=== PATIENT | female | born 1950 | race Caucasian/White ===

== ENCOUNTER 2020-03-04 00:09 | Emergency (ER) | payer OTHER ==
[~2020-03-04] VITALS: Ht 172.7 cm; Wt 53.1 kg
[2020-03-04 03:14] VITALS: BP 164/62
== END 2020-03-04 03:14 | disposition home or self-care (01) ==
LOC: M.ERS 00:09
DX: S01.312A Laceration without foreign body of left ear, initial encounter (principal); I10 Essential (primary) hypertension; Z88.8 Allergy status to other drugs, medicaments and biological substances; Z88.1 Allergy status to other antibiotic agents; W10.9XXA Fall (on) (from) unspecified stairs and steps, initial encounter; Y93.89 Activity, other specified; Y92.89 Other specified places as the place of occurrence of the external cause; Y99.8 Other external cause status

== ENCOUNTER 2020-03-13 13:15 | Emergency (ER) | payer OTHER ==
[~2020-03-13] VITALS: Ht 172.7 cm; Wt 52.2 kg
[2020-03-13 13:36] VITALS: BP 138/55
== END 2020-03-13 13:36 | disposition home or self-care (01) ==
LOC: M.ERS 13:15
DX: S01.312D Laceration without foreign body of left ear, subsequent encounter (principal); I10 Essential (primary) hypertension; Z88.8 Allergy status to other drugs, medicaments and biological substances; X58.XXXD Exposure to other specified factors, subsequent encounter

== ENCOUNTER 2020-04-02 11:03 | Emergency (ER) | payer OTHER ==
[~2020-04-02] VITALS: Ht 172.7 cm; Wt 55.3 kg
[2020-04-02] MEDS ORDERED: PLAQUENIL200 MG PO (11:16)
[2020-04-02] MEDS ORDERED: TOPROL XL25 MG PO (11:16)
[2020-04-02] MEDS ORDERED: PRILOSEC OTC20 MG PO (11:17)
[2020-04-02] MEDS ORDERED: CIMETIDINE 400400 MG PO (11:17)
[2020-04-02] MEDS ORDERED: ZESTRIL20 MG PO (11:17)
[2020-04-02] MEDS ORDERED: NORTRIPTYLINE H50 M3 PO (11:18)
[2020-04-02] MEDS ORDERED: HYDROXYZINE HCL25 M2 PO (11:18)
[2020-04-02 12:12] LABS: ABSOLUTE LYMPHOCYTES 0.9 thou/uL (0.8-5.3); ABSOLUTE MONOCYTES 0.3 thou/uL (0.0-1.2); ABSOLUTE NEUTROPHILS 5.9 thou/uL (1.6-8.1); BASOPHILS 0.3 %; EOSINOPHILS 0.4 %; HEMATOCRIT 36.1 % (37.0-47.0); HEMOGLOBIN 12.2 gm/dL (12.0-15.0); LYMPHOCYTES 11.9 %; MCH 30.1 pg (26.0-34.0); MCHC 33.8 g/dL (28.0-37.0); MCV 89.1 fL (80.0-100.0); MONOCYTES 4.8 %; MPV 8.4 fl. (7.2-11.1); NUCLEATED RBCS 0 /100WBC; PLATELET COUNT* 303 thou/uL (150-400); POLYS 82.6 %; RBC 4.06 mil/uL (4.20-5.00); RDW-CV 12.4 % (10.5-14.5); WBC 7.2 thou/uL (4.0-11.0)
[2020-04-02 12:20] LABS: CALCIUM 8.4 mg/dL (8.5-10.1); CREATININE 1.7 mg/dL (0.6-1.3); POTASSIUM 4.5 mmol/L (3.5-5.1)
[2020-04-02 12:23] LABS: APTT 22.9 Seconds (25.0-31.3); PROTIME 10.8 Seconds (9.20-11.50)
[2020-04-02 12:30] LABS: ALBUMIN 3.9 g/dL (3.4-5.0); TOTAL BILIRUBIN 0.3 mg/dL (<0.1-1.0)
[2020-04-02 13:45] VITALS: BP 108/43
--- NOTE | 2020-04-02 16:21 | EKG ---
[place] [address] ELECTROCARDIOGRAM REPORT Name: RASHAD ROUSSEAU Room: [facility]#: [id number] Admission: 04/02/20 Attend Phys: Discharge: 04/02/20 Date of : 50 Date of Service: 04/02/20 1203 Report #: [id number] THIS REPORT FOR: //name// [facility] ED Test Date: 2020-04-02 Test Time: 12:03:02 Pat Name: RASHAD ROUSSEAU Department: Room: Gender: [employer]: [facility] : 1950 Requested By: Gee Lyon Order Number: [id number] MD: Yefri Anderson Measurements Intervals [place] Rate: 77 P: 72 [place]: 175 QRS: 73 QRSD: 117 T: 252 QT: 452 QTc: 512 Interpretive Statements Sinus rhythm Incomplete right bundle branch block Abnrm T, consider ischemia, anterolateral lds No previous ECG available for comparison Electronically Signed On 04-02-2020 16:20:54 CDT by Yefri Anedrson [email or web address] <ELECTRONICALLY SIGNED> By: Yefri Anderson MD, [facility] 04/02/20 1620 1203 1203 Yefri Anderson MD, [facility] /EPI
== END 2020-04-02 13:45 | disposition short-term general hospital (02) ==
LOC: M.ERS 11:03
PROVIDERS: Family Medicine
DX: S06.5X0A Traumatic subdural hemorrhage without loss of consciousness, initial encounter (principal); S52.612A Displaced fracture of left ulna styloid process, initial encounter for closed fracture; S52.502A Unspecified fracture of the lower end of left radius, initial encounter for closed fracture; R42 Dizziness and giddiness; I10 Essential (primary) hypertension; Z20.828 Contact with and (suspected) exposure to other viral communicable diseases; Z88.8 Allergy status to other drugs, medicaments and biological substances; W18.39XA Other fall on same level, initial encounter; Y93.89 Activity, other specified; Y92.89 Other specified places as the place of occurrence of the external cause; Y99.8 Other external cause status